=== PATIENT | female | born 1965 | race Two or more races ===

== ENCOUNTER 2018-01-04 12:31 | Emergency (ER) | payer MEDICAID, OTHER ==
[~2018-01-04] VITALS: Ht 167.6 cm; Wt 68.0 kg
[~2018-01-04 12:31] MED LIST: LISI-33
[2018-01-04] MEDS ORDERED: SODIUM CHLORIDE 0.9% 1,000 ML IVB ONE (12:57)
[2018-01-04] MEDS ORDERED: ASPirin 81 mg TAB PO ONE (13:00)
[2018-01-04] MEDS ORDERED: MORPHINE SULFATE 4 MG/ML SYR/VIAL IV ONE (13:00)
[2018-01-04] MEDS ORDERED: ONDANSETRON HCL 4 MG/2 ML VIAL IV ONE (13:00)
[2018-01-04] MEDS ORDERED: MORPHINE SULFATE INJECTION 1 ML ONE (13:27)
[2018-01-04 13:31] LABS: Basophils # (auto) 0 uL; Basophils % (auto) 0.8 % (0.0-2.0); Eosinophils # (auto) 0.1 uL; Eosinophils % (auto) 1.7 % (0.0-7.0); Hematocrit 40.1 % (36.0-46.0); Hemoglobin 13.3 g/dL (12.2-16.2); Lymphocytes # (auto) 1.5 uL; Lymphocytes % (auto) 28.1 % (10.0-50.0); Mean Corpuscular Hemoglobin 29.6 pg (28.0-32.0); Mean Corpuscular Hgb Conc. 33.3 g/dL (32.0-36.0); Monocytes # (auto) 0.5 uL; Monocytes % (auto) 8.6 % (0.0-12.0); Neutrophils # (auto) 3.3 uL; Neutrophils % (auto) 60.8 % (37.0-80.0); Platelet Count (auto) 231 10^3/uL (140-450); Red Cell Distribution Width 12.9 % (11.8-14.3); White Blood Cell 5.4 10^3/uL (4.4-10.8)
[2018-01-04 13:46] LABS: Chloride 108 mmol/L (98-107); Potassium 3.5 mmol/L (3.5-5.1); Sodium 140 mmol/L (136-145)
[2018-01-04 13:51] LABS: Albumin 3.6 g/dL (3.4-5.0); Anion Gap 10 (5-15); BUN/Creatinine Ratio 16.9; Blood Urea Nitrogen 10 mg/dL (7-18); Calcium 9.1 mg/dL (8.5-10.1); Carbon Dioxide 22 mmol/L (21-32); GFR African American 139 mL/min; GFR Non-African American 115 mL/min; Glucose 91 mg/dL (74-106)
[2018-01-04 14:08] LABS: Alanine Aminotransferase 33 U/L (13-56); Alkaline Phosphatase 65 U/L (45-117); Aspartate Aminotransferase 25 U/L (15-37); Bilirubin, Total 0.2 mg/dL (0.2-1.0); Total Protein 7.7 g/dL (6.4-8.2)
[2018-01-04 15:49] VITALS: BP 146/76
== END 2018-01-04 16:35 | disposition home or self-care (01) ==
LOC: EDBD 12:31 → ER 12:31
DX: R07.89 Other chest pain (principal); I10 Essential (primary) hypertension; J45.909 Unspecified asthma, uncomplicated; R06.02 Shortness of breath; R42 Dizziness and giddiness; Z86.73 Personal history of transient ischemic attack (TIA), and cerebral infarction without residual deficits; Z90.49 Acquired absence of other specified parts of digestive tract; Z88.6 Allergy status to analgesic agent; Z79.899 Other long term (current) drug therapy; Z79.82 Long term (current) use of aspirin
CPT/HCPCS: 36415; 71045; 80053; 83735; 84484; 85025; 93005; 94761; 96374; 96375; 99285; J2270; J2405; J7030